=== PATIENT | female | born 1990 | race African-American/Black ===

== ENCOUNTER 2021-02-05 16:40 | Emergency (ER) | payer OTHER, SELFPAY ==
[2021-02-05 16:43] VITALS: BP 128/59; PULSE 87; RESP 18; TEMP 36.6; O2SAT 100
--- NOTE | 2021-02-05 17:03 | ED.GENADULT ---
HPI - General Adult General Chief complaint: Dental/Oral Stated complaint: dental pain Time Seen by Provider: 02/05/21 16:54 Source: patient Mode of arrival: ambulatory Limitations: no limitations History of Present Illness HPI narrative: Patient is a 30-year-old female who presents to emergency department for evaluation of posterior left-sided dental pain with history of decay patient notes moderate aching pain radiating to the ear and neck patient denies other complaints or symptoms has not been seen for this Related Data Allergies Allergy/AdvReac Type Severity Reaction Status Date / Time orange juice Allergy Unknown Verified 02/05/21 16:47 shellfish derived Allergy Unknown Verified 02/05/21 16:47 morphine AdvReac Mild Itching Verified 02/05/21 16:47 Review of Systems Review of Systems: All systems reviewed & are unremarkable except as noted in HPI and below PMFSH Family History Family History Other Unknown family medical history Social History Social History Smoking status: Former smoker Substance use: never Gender identity (if verbalized by the patient): Female Spiritual care concerns: No Exam Narrative: Exam Narrative: GENERAL: Well-appearing, well-nourished, and in no acute distress. HEAD: Normocephalic, atraumatic. EYES: PERRLA and EOMI. ENT: Nares clear, no rhinorrhea or epistaxis. Mucous membranes moist. Oropharynx without tonsillar hypertrophy exudate or other lesions. Posterior dental decay is in the upper and lower molars no space-occupying lesion NECK: Supple. No adenopathy or masses. CHEST: Clear to auscultation. No respiratory distress. No wheezes rales or rhonchi HEART: Regular rate and rhythm. No murmur heard. EXTREMITIES: Normal range of motion. No edema. SKIN: Warm, dry, no rash. NEURO: No focal deficits. Alert and oriented x3. PSYCH: Normal mood and affect. Course Course Emergency Course: Patient in the room no distress aware of case findings treatment plan and diagnosis Vital Signs Vital signs: Vital Signs Temperature 97.8 F 02/05/21 16:43 Pulse Rate 87 02/05/21 16:43 Respiratory Rate 18 02/05/21 16:43 Blood Pressure 128/59 L 02/05/21 16:43 Pulse Oximetry 100 02/05/21 16:43 Temperature 97.8 F 02/05/21 16:43 Pulse Rate 87 02/05/21 16:43 Respiratory Rate 18 02/05/21 16:43 Blood Pressure 128/59 L 02/05/21 16:43 Pulse Oximetry 100 02/05/21 16:43 Medical Decision Making MDM Narrative Medical decision making narrative: Paitents pain and complaint coupled with physical findings are consistant with dentalgia. There are no focal signs of space occupying lesions that are compromising to the ariway. The floor of the mouth is soft with no signs of Ludwigs Angina. Patient is without trismus or drooling and able to swallow secreations. Patient is felt appropriate for discharge home with dental follow up. Vital Signs Vital Signs: Vital Signs Temperature 97.8 F 02/05/21 16:43 Pulse Rate 87 02/05/21 16:43 Respiratory Rate 18 02/05/21 16:43 Blood Pressure 128/59 L 02/05/21 16:43 Pulse Oximetry 100 02/05/21 16:43 Temperature 97.8 F 02/05/21 16:43 Pulse Rate 87 02/05/21 16:43 Respiratory Rate 18 02/05/21 16:43 Blood Pressure 128/59 L 02/05/21 16:43 Pulse Oximetry 100 02/05/21 16:43 Discharge Plan Discharge Clinical Impression: Dental abscess Patient Disposition: Home, Self-Care Condition: Stable Instructions: Antibiotic Form, Dental Abscess (ED) Additional Instructions: Follow-up with dentistry in the next 7 days for reevaluation. Go to ER for shortness of breath, difficulty breathing, chest pain, fever/chills, weakness, nauseau/vomitting, unable to swallow or open the mouth, etc. or any other concerns. Take any prescribed medications as directed. If you do not have a drug aller
== END 2021-02-05 17:22 | disposition home or self-care (01) ==
PROVIDERS: Emergency Provider Emergency Medicine; PCP Emergency Medicine
DX: K04.7 Periapical abscess without sinus (principal); Z87.891 Personal history of nicotine dependence
CPT/HCPCS: 99283